=== PATIENT | female | born 1960 | race Caucasian/White ===

== ENCOUNTER 2020-02-24 19:27 | Emergency (ER) | payer MEDICAID ==
[~2020-02-24] VITALS: Ht 160 cm; Wt 50.4 kg
--- NOTE | 2020-02-24 20:02 | NUR ---
XR DONE. PT'S LT ARM SPLINTED & WRAPPED W/ CK; DONE IN [place] ED. LT ARM FX. HERE FOR REFERRAL TO [facility] FOR FX FOLLOW-UP. PT HAS HYDROCODONE/ACETAMINOPHEN AT RESIDENCE; LAST DOSE YESTERDAY. TOOK ALEVE TODAY; LAST DOSE AT 1000.
[2020-02-24] MEDS ORDERED: MULTVITAMIN (20:07)
[2020-02-24 20:10] VITALS: BP 120/80
== END 2020-02-24 20:44 | disposition home or self-care (01) ==
LOC: ED 20:15
DX: S52.502A Unspecified fracture of the lower end of left radius, initial encounter for closed fracture (principal); S52.612A Displaced fracture of left ulna styloid process, initial encounter for closed fracture; W18.39XA Other fall on same level, initial encounter; Y93.89 Activity, other specified; Y92.830 Public park as the place of occurrence of the external cause; Y99.8 Other external cause status
CPT/HCPCS: 99283